=== PATIENT | male | born 1955 | race Asian ===

== ENCOUNTER 2019-06-27 10:01 | Inpatient (IN) | payer OTHER ==
[~2019-06-27] VITALS: Ht 175.3 cm; Wt 68.0 kg
--- NOTE | 2019-06-27 13:30 | NUR ---
DIRECT ADMIT RECEIVED PT FROM [facility]. PT A/OX4. DENEIS ANY PAIN OR ORTHER DISCOMOFRT AT THIS TIME. RES EVENA ND UNLABORED. NEURO CHECK WNL. NO NEURODEFICT NOTED.SAFETY PRECAUTIONS IN PLACE.CALL LIGHT WITHIN REACH. POC DISCUSSED WITH PT VERBALIZED UNDERSTANDING.RAPID SWALLOW SCREEN DONE. WNL.WILL CONTINUE TO MONITOR
--- NOTE | 2019-06-27 15:45 | NUR ---
MD VISIT SEEN BY DR FERNANDEZ. NEW ORDER RECEIVED
[2019-06-27 16:30] VITALS: BP_SYST 148
[2019-06-27] MEDS ORDERED: ACETAMINOPHEN 325 MG TABLET PO PRN (16:45)
--- NOTE | 2019-06-27 16:47 | NUR ---
CONSULTATION PAGED REASON FOR CONSULTATION:SMALL INTRA-CRANIAL ANEURYSM WAS CONSULT CALLED?Y PERSON WHO WAS NOTIFIED:GALINA CONSULTING PHYSICIAN:ADA STORM PARTS CHASER SPECIALTY:NEURO PARTS CHASER PHONE NUMBER:[phone] REQUESTING PHYSICIAN:FRANCINE SIERRA
--- NOTE | 2019-06-27 17:00 | NUR ---
NEUROSURGEON CALLED DR OWENS CALLED FOR CONSULT. CT ANGIOGRAM REPORT REPORTED TO DR ABDI. . NO NEW ORDER RECEIVED. TO SEE PT. Addendum: 06/27/19 at 2022 by Dolores Franks RN 06/27/19 [address] OWENS CALLED FOR CONSULT. CT HEAD ANGIOGRAM REPORT REPORTED TO DR OWENS . NO NEW ORDER RECEIVED. TO SEE PT.
--- NOTE | 2019-06-27 17:03 | NUR ---
CONSULTATION PAGED REASON FOR CONSULTATION:ACUTE CVA WAS CONSULT CALLED?Y PERSON WHO WAS NOTIFIED:TEXT MESSAGED AMANDA LARA CONSULTING PHYSICIAN:AMANDA LARA BACK TACKER SPECIALTY:NEURO BACK TACKER PHONE NUMBER:[phone] REQUESTING PHYSICIAN:HALIE SIERRA
--- NOTE | 2019-06-27 19:30 | NUR ---
CLOSING NOTES PT STABLE NOT IN ACUTE DISTRESS. NO S/S OF DISTRESS NOTED. NEURO CHECK WNL.VITALS STABLE. KEPT COMFORTABLE. REPORT GIVEN TO NIGHT NURSE LUZ ELENA
--- NOTE | 2019-06-27 19:40 | NUR ---
ROUNDS PATIENT RESTING COMFORTABLY IN BED, NOT IN DISTRESS, VITALS STABLE. DENIES ANY PAIN AND DISCOMFORT AT THIS TIME. ASSESSMENT DONE AND DOCUMENTED. SEE FLOWSHEET. NEEDS ATTENDED TO. SAFETY MEASURES IN PLACED. CALL LIGHT PLACED WITHIN REACH.
[2019-06-27 20:00] VITALS: BP_SYST 143
--- NOTE | 2019-06-27 21:14 | NUR ---
PATIENT RESTING: Patient resting quietly. No acute distress noted. Vital signs within normal range.
[2019-06-28] VITALS: BP_SYST 151
--- NOTE | 2019-06-28 00:12 | NUR ---
PATIENT RESTING: Patient resting quietly. No acute distress noted. Vital signs within normal range.
[2019-06-28 01:46] LABS: BILIRUBIN,URINE NEGATIVE (NEGATIVE); BLOOD, URINE NEGATIVE (NEGATIVE); CLARITY/URINE CLEAR (CLEAR); COLOR,URINE YELLOW (YELLOW); GLUCOSE,URINE NEGATIVE (NEGATIVE); KETONES,URINE NEGATIVE (NEGATIVE); LEUKOCYTE ESTERASE ,URINE NEGATIVE (NEGATIVE); NITRITE, URINE NEGATIVE (NEGATIVE); PH,URINE 7.5 (5.0-8.0); PROTEIN URINE NEGATIVE (NEGATIVE); UROBILINOGEN,URINE 0.2 (0.2-1.0)
--- NOTE | 2019-06-28 02:14 | NUR ---
ROUNDS PATIENT ASLEEP, RESPIRATIONS EVEN AND UNLABORED, NO PAIN AND DISCOMFORT NOTED. WILL CONTINUE TO MONITOR.
--- NOTE | 2019-06-28 04:13 | NUR ---
ROUNDS PATIENT ASLEEP, RESPIRATIONS EVEN AND UNLABORED, WILL CONTINUE TO MONITOR.
[2019-06-28 06:09] LABS: BASOPHILS # (AUTO) 0.1 K/uL (0.0-0.2); BASOPHILS % (AUTO) 0.9 % (0.0-2.0); EOSINOPHILS # (AUTO) 0.4 K/uL (0.0-0.4); HEMATOCRIT 46.1 % (36-54); HEMOGLOBIN 15.5 g/dL (14.0-18.0); LYMPHOCYTES # (AUTO) 1.4 K/uL (1.0-5.5); MEAN CORPUSCULAR HEMOGLOBIN 32 pg (27-31); MEAN CORPUSCULAR HGB CONC 34 % (32-36); MEAN CORPUSCULAR VOLUME 96 fL (79.0-98.0); MONOCYTES # (AUTO) 0.9 K/uL (0.0-1.0); NEUTROPHILS # (AUTO) 4.5 K/uL (1.8-7.7); NEUTROPHILS % (AUTO) 63.1 % (40.0-70.0); PLATELET COUNT (AUTO) 260 K/uL (130-430); RED BLOOD CELL COUNT(AUTO) 4.81 MIL/uL (4.2-6.2); RED CELL DISTRIBUTION WIDTH 14.2 % (9.0-15.0); WHITE BLOOD COUNT (AUTO) 7.2 K/uL (4.8-10.8)
[2019-06-28 06:29] LABS: ALBUMIN 3.2 g/dL (3.4-4.8); CALCIUM 8.2 mg/dL (8.4-11.0); CREATININE 0.77 mg/dL (0.55-1.30); FREE T4 (FREE THYROXINE) 1.1 ng/dl (0.8-1.5); POTASSIUM 3.6 mmol/L (3.5-5.1); THYROID STIMULATING HORMONE 0.87 uIu/mL (0.36-3.74); TOTAL BILIRUBIN 0.6 mg/dL (0.0-1.0)
--- NOTE | 2019-06-28 06:31 | NUR ---
CLOSING NOTES PATIENT AWAKE, VITALS STABLE, NO COMPLAINTS AT THIS TIME. ALL NEEDS ATTENDED TO. SAFETY MEASURES MAINTAINED. CALL LIGHT PLACED WITHIN REACH.
--- NOTE | 2019-06-28 07:18 | NUR ---
OPENING NOTE Patient resting in the bed. No acute distress. AAO x 4. Denied of pain. Skin warm and dry to touch. SL intact to LAC, no redness, no swelling, patent. Discussed the safety issue, use call light when needs help, and plan of care, verbally understanding. Safety measure maintained. Call light within reached. Bed locked in low position, side rails up. Refused bed alarm, risk and benefit explained, verbally understanding. Will continue to monitor.
[2019-06-28 07:50] VITALS: BP_SYST 150
[2019-06-28] MEDS ORDERED: ATORVASTATIN 20 MG TABLET PO SCH (09:00)
[2019-06-28] MEDS ORDERED: ASPIRIN 81 MG TABLET(ECOTRIN) PO SCH (09:00)
--- NOTE | 2019-06-28 09:35 | NUR ---
AM SCHEDULE MED GIVEN, TOLERATED WELL.
--- NOTE | 2019-06-28 11:05 | NUR ---
2D ECHO DOING AT BEDSIDE AT THIS TIME.
[2019-06-28] MEDS ORDERED: LISINOPRIL 5 MG TABLET PO ONE (11:15)
--- NOTE | 2019-06-28 11:30 | NUR ---
SEEN AND EXAMINED BY DR. FERNANDEZ [facility].
[2019-06-28 12:00] VITALS: BP_SYST 125
--- NOTE | 2019-06-28 12:24 | NUR ---
PT SERVICE PROVIDED TO THE PATIENT. PATIENT AMBULATED IN STEADY GAIT.
--- NOTE | 2019-06-28 12:51 | NUR ---
P.T. NOTES P.T. EVAL COMPLETED; ENDORSED TO NURSING. VI=323/75 (SUPINE), 142/82 (SITTING), 150/67 (STANDING); HR=60-65; O2 SAT ROOM AIR=96%
--- NOTE | 2019-06-28 13:53 | NUR ---
PAGED PAGED ADA STORM AT [phone] SPOKE WITH ELVIA.
--- NOTE | 2019-06-28 14:00 | NUR ---
ROUND Patient resting in the bed and talked to the family via phone. No acute distress. Safety measure maintained. Call light within reached. Continue to monitor.
[2019-06-28] MEDS ORDERED: LIP20 PO (14:35)
[2019-06-28] MEDS ORDERED: ASPI-1153 PO (14:35)
[2019-06-28] MEDS ORDERED: LISI-209 PO (14:35)
[2019-06-28 15:20] VITALS: BP_SYST 125
--- NOTE | 2019-06-28 15:35 | NUR ---
D/C Patient Patient given medication reconciliation form and D/C instructions. Exit Care provided. Patient verbalized understanding. MD discussed with patient the results and treatment provided. Ambulatory with steady gait for discharge to home. Patient in stable condition, ID band removed. IV catheter removed, intact and dressing applied, no active bleeding. Rx of Aspirin, Atorvastatin Calcium, Lisinopril given. Patient educated on pain management. All belongings sent with patient.
[2019-06-29] MEDS ORDERED: LISINOPRIL 5 MG TABLET PO SCH (09:00)
[2019-06-29 09:09] LABS: % FREE PSA 27.2 % (.); FREE PSA 0.98 ng/mL; PROSTATE SPECIFIC AG TOTAL 3.6 ng/mL (0.0-4.0)
== END 2019-06-28 15:25 | disposition home or self-care (01) | DRG 69 ==
LOC: SMU 10:01 → UNDOADMIN 10:01 → SMU 13:12 → STU 13:17
PROVIDERS: ADMIT Internal Medicine; ATTEND Internal Medicine
DX: G45.9 Transient cerebral ischemic attack, unspecified (principal); I10 Essential (primary) hypertension; F17.200 Nicotine dependence, unspecified, uncomplicated; E78.5 Hyperlipidemia, unspecified; I72.0 Aneurysm of carotid artery; I72.6 Aneurysm of vertebral artery; Z79.82 Long term (current) use of aspirin; Z79.899 Other long term (current) drug therapy; Z88.8 Allergy status to other drugs, medicaments and biological substances
CPT/HCPCS: 36415; 80053; 80061; 81003; 82306; 82607; 83735-TC; 84153; 84439; 84443-TC; 85025; 93005; 93306; 97163; G0378; J7060

== ENCOUNTER → 2019-08-15 | Outpatient (CLI) | payer OTHER ==
[~2019-08-15] MED LIST: ASPI-1153 PO; LIP20 PO; LISI-209 PO
[2019-08-15 08:53] LABS: BASOPHILS # (AUTO) 0.1 K/uL (0.0-0.2); BASOPHILS % (AUTO) 1.2 % (0.0-2.0); EOSINOPHILS # (AUTO) 0.3 K/uL (0.0-0.4); EOSINOPHILS % (AUTO) 5.2 % (0.0-4.0); HEMATOCRIT 45.3 % (36-54); HEMOGLOBIN 15.2 g/dL (14.0-18.0); LYMPHOCYTES # (AUTO) 1.1 K/uL (1.0-5.5); LYMPHOCYTES % (AUTO) 19.8 % (20.5-51.5); MEAN CORPUSCULAR HEMOGLOBIN 32 pg (27-31); MEAN CORPUSCULAR HGB CONC 34 % (32-36); MEAN CORPUSCULAR VOLUME 96 fL (79.0-98.0); MONOCYTES # (AUTO) 0.6 K/uL (0.0-1.0); MONOCYTES % (AUTO) 10.3 % (1.7-9.3); NEUTROPHILS # (AUTO) 3.6 K/uL (1.8-7.7); NEUTROPHILS % (AUTO) 63.5 % (40.0-70.0); PLATELET COUNT (AUTO) 258 K/uL (130-430); RED CELL DISTRIBUTION WIDTH 13.6 % (9.0-15.0); WHITE BLOOD COUNT (AUTO) 5.7 K/uL (4.8-10.8)
[2019-08-15 10:04] LABS: C-REACTIVE PROTEIN QUANT 0.3 mg/dL (0-0.5); CALCIUM 8.8 mg/dL (8.4-11.0); CREATININE 1.04 mg/dL (0.55-1.30); THYROID STIMULATING HORMONE 0.48 uIu/mL (0.34-4.82); TOTAL BILIRUBIN 0.6 mg/dL (0.0-1.0); URIC ACID 5.1 mg/dL (2.4-7.0)
[2019-08-16 13:06] LABS: PROSTATE SPECIFIC AG 0.4 ng/mL (0.0-4.0)
[2019-08-17 12:18] LABS: HEMOGLOBIN A1C 5.9 % (4.8-5.6)
== END | disposition home or self-care (01) ==
LOC: SLB 08:26
PROVIDERS: ATTEND Internal Medicine
DX: Z00.00 Encounter for general adult medical examination without abnormal findings (principal)
CPT/HCPCS: 36415; 80053; 80061; 82306; 82607; 83036; 84153; 84443-TC; 84550-TC; 85025; 86140

== ENCOUNTER 2021-10-26 10:42 | Outpatient (CLI) | payer OTHER ==
[~2021-10-26 10:42] MED LIST changes: -ASPI-1153 PO; +ASPI-1393 PO
[2021-10-26 11:32] LABS: BASOPHILS % (AUTO) 0.7 % (0.0-2.0); EOSINOPHILS # (AUTO) 0.2 K/uL (0.0-0.4); EOSINOPHILS % (AUTO) 4.4 % (0.0-4.0); HEMATOCRIT 45.3 % (36-54); LYMPHOCYTES # (AUTO) 1.1 K/uL (1.0-5.5); LYMPHOCYTES % (AUTO) 20.8 % (20.5-51.5); MEAN CORPUSCULAR VOLUME 92 fL (79.0-98.0); MONOCYTES # (AUTO) 0.5 K/uL (0.0-1.0); MONOCYTES % (AUTO) 10.2 % (1.7-9.3); NEUTROPHILS # (AUTO) 3.3 K/uL (1.8-7.7); NEUTROPHILS % (AUTO) 63.9 % (40.0-70.0); PLATELET COUNT (AUTO) 263 K/uL (130-430); RED BLOOD CELL COUNT(AUTO) 4.91 MIL/uL (4.2-6.2); RED CELL DISTRIBUTION WIDTH 14.2 % (9.0-15.0); WHITE BLOOD COUNT (AUTO) 5.1 K/uL (4.8-10.8)
[2021-10-26 11:47] LABS: ALBUMIN 3.9 g/dL (3.4-4.8); CALCIUM 9.1 mg/dL (8.4-11.0); CREATININE 0.94 mg/dL (0.55-1.30); THYROID STIMULATING HORMONE 0.86 uIu/mL (0.36-3.74); TOTAL BILIRUBIN 0.6 mg/dL (0.0-1.0)
[2021-10-29 15:26] LABS: HEMOGLOBIN A1C 5.8 % (4.8-5.6)
== END 2021-10-26 20:11 | disposition home or self-care (01) ==
LOC: SLB 10:42
PROVIDERS: ATTEND Internal Medicine
DX: I10 Essential (primary) hypertension (principal); E78.5 Hyperlipidemia, unspecified; R73.9 Hyperglycemia, unspecified; E55.9 Vitamin D deficiency, unspecified; E56.9 Vitamin deficiency, unspecified
CPT/HCPCS: 36415; 80053; 80061; 82306; 82607; 83036; 84443; 85025

== ENCOUNTER 2022-05-18 10:04 | Outpatient (CLI) | payer OTHER ==
[2022-05-18 10:58] LABS: BASOPHILS % (AUTO) 0.6 % (0.0-2.0); EOSINOPHILS # (AUTO) 0.3 K/uL (0.0-0.4); EOSINOPHILS % (AUTO) 5.1 % (0.0-4.0); HEMATOCRIT 45.4 % (36-54); HEMOGLOBIN 15.1 g/dL (14.0-18.0); LYMPHOCYTES # (AUTO) 1.2 K/uL (1.0-5.5); MEAN CORPUSCULAR HEMOGLOBIN 32 pg (27-31); MEAN CORPUSCULAR HGB CONC 33 % (32-36); MEAN CORPUSCULAR VOLUME 95 fL (79.0-98.0); MONOCYTES # (AUTO) 0.6 K/uL (0.0-1.0); MONOCYTES % (AUTO) 9.2 % (1.7-9.3); NEUTROPHILS # (AUTO) 4.4 K/uL (1.8-7.7); NEUTROPHILS % (AUTO) 67.1 % (40.0-70.0); PLATELET COUNT (AUTO) 292 K/uL (130-430); RED BLOOD CELL COUNT(AUTO) 4.77 MIL/uL (4.2-6.2); RED CELL DISTRIBUTION WIDTH 13.7 % (9.0-15.0); WHITE BLOOD COUNT (AUTO) 6.6 K/uL (4.8-10.8)
[2022-05-18 11:20] LABS: CREATININE 0.95 mg/dL (0.55-1.30); THYROID STIMULATING HORMONE 0.77 uIu/mL (0.34-4.82); TOTAL BILIRUBIN 0.6 mg/dL (0.0-1.0)
[2022-05-19 08:06] LABS: PROSTATE SPECIFIC AG 0.4 ng/mL (0.0-4.0)
== END 2022-05-18 19:14 | disposition home or self-care (01) ==
LOC: SLB 10:04
PROVIDERS: ATTEND Internal Medicine
DX: I10 Essential (primary) hypertension (principal); E78.5 Hyperlipidemia, unspecified; E55.9 Vitamin D deficiency, unspecified; R73.9 Hyperglycemia, unspecified; E56.9 Vitamin deficiency, unspecified; N40.1 Benign prostatic hyperplasia with lower urinary tract symptoms
CPT/HCPCS: 36415; 80053; 80061; 82306; 82607; 83037; 84153; 84443; 85025